=== PATIENT | male | born 1965 | race Hispanic/Latino ===

== ENCOUNTER 2017-12-21 08:32 | Emergency (ER) | payer SELFPAY ==
[2017-12-21] MEDS ORDERED: PERCOCET 5/325 PO ONE (09:14)
--- NOTE | 2017-12-21 09:19 | Emergency Department Report ---
Blank Doc - Documentation Documentation: 52-year-old male past medical history of knee problems, osteoarthritis, came in complaining of bilateral knee pain for one year. Patient states that he has seen 2 orthopedic surgeons in [place] and is told that he needs knee replacement. Patient states that he still working on his insurance. Patient denies any nausea vomiting chest pain shortness of breath. Patient denies any calf pain bilaterally. P: 1. x rays 2. pain control
--- NOTE | 2017-12-21 10:28 | Emergency Department Report ---
ED Lower Extremity HPI - General Chief Complaint: Extremity Injury, Lower Stated Complaint: KNEE PAIN Time Seen by Provider: 12/21/17 09:03 Source: patient Mode of arrival: Wheelchair Limitations: No Limitations - History of Present Illness Initial Comments: 52-year-old male past medical history of osteoarthritis presents with bilateral knee pain for one year. He is complaining of left knee pain increased and unable to apply pressure. Patient states that he has seen 2 orthopedic surgeons in [place] and ER at [facility] told that he needs knee replacement. Patient states that he still working on obtaining insurance. Last week Luis A applied for emergency medicaid and awaiting approval for surgery. Patient denies nausea or vomiting, fever, chest pain, shortness of breath, and calf pain bilaterally. MD Complaint: knee injury (bilateral, worsening left) -: year(s) Injury: Knee: Left (pain with ROM, unable to bear weight to LLE) Type of Injury: unknown Place: home Severity: severe Severity scale (0 -10): 10 Improves With: nothing Worsens With: weight bearing, movement, palpation Associated Symptoms: swelling, unable to bear weight. denies: snap/pop sensation, numbness, tingling, ambulatory (sitting in wheelchair) Treatments Prior to Arrival: NSAIDS - Related Data Previous Rx's Medication Instructions Recorded Last Taken Type Cyclobenzaprine HCl 7.5 mg PO TID PRN #20 tab 12/21/17 Unknown Rx [Cyclobenzaprine 7.5 MG TAB] Diclofenac Sodium 75 mg PO BID #30 tablet. 12/21/17 Unknown Rx traMADol [Ultram 50 MG tab] 50 mg PO Q6HR PRN #20 tablet 12/21/17 Unknown Rx Allergies Allergy/AdvReac Type Severity Reaction Status Date / Time No Known Allergies Allergy Unverified 12/21/17 08:33 ED Review of Systems ROS: Stated complaint: KNEE PAIN Other details as noted in HPI Constitutional: denies: chills, fever Respiratory: denies: cough, shortness of breath, wheezing Cardiovascular: denies: chest pain, palpitations Gastrointestinal: denies: abdominal pain, nausea, diarrhea Musculoskeletal: joint swelling (left knee), arthralgia (left knee). denies: back pain Skin: denies: rash, lesions Neurological: denies: headache, weakness, numbness, paresthesias Psychiatric: denies: anxiety, depression ED Past Medical Hx - Past Medical History Previous Medical History?: No - Surgical History Past Surgical History?: Yes Additional Surgical History: knee surgery, neck surgery - Social History Smoking Status: Never Smoker Substance Use Type: Alcohol - Medications Home Medications: Home Medications Medication Instructions Recorded Confirmed Last Taken Type Cyclobenzaprine HCl 7.5 mg PO TID PRN #20 tab 12/21/17 Unknown Rx [Cyclobenzaprine 7.5 MG TAB] Diclofenac Sodium 75 mg PO BID #30 tablet. 12/21/17 Unknown Rx traMADol [Ultram 50 MG tab] 50 mg PO Q6HR PRN #20 tablet 12/21/17 Unknown Rx ED Physical Exam - General Limitations: No Limitations General appearance: alert, in no apparent distress - Respiratory Respiratory exam: Present: normal lung sounds bilaterally. Absent: respiratory distress - Cardiovascular Cardiovascular Exam: Present: regular rate, normal rhythm, normal heart sounds. Absent: systolic murmur, diastolic murmur, rubs, gallop - GI/Abdominal GI/Abdominal exam: Present: soft, normal bowel sounds. Absent: organomegaly, mass - Expanded Lower Extremity Exam Left Hip exam: Present: normal inspection, full ROM. Absent: tenderness Upper Leg exam: Absent: tenderness, abrasion, laceration, ecchymosis, deformity , crepidus, dislocation, erythema Knee exam: Present: swelling, pain w/ pronation/supination (unable to tolerate passive or active range of motion). Absent: full ROM, abrasion, laceration, ecchymosis, full knee extension Lower Leg exam: Absent: tenderness, swelling, abrasion, crepidus, dislocation Ankle exam: Present: normal inspection, full ROM Foot/Toe exam: Present: normal inspection, full ROM Neuro vascular tendon exam: Present: no vascular compromise, significant pain with passive ROM of distal joint Gait: Positive: not tested/not observed, unable to bear weight - Neurological Exam Neurological exam: Present: alert, oriented X3, abnormal gait (unable to assess , unable to bear weight the left lower extremity) - Psychiatric Psychiatric exam: Present: normal affect, normal mood - Skin Skin exam: Present: warm, dry, intact, normal color. Absent: rash ED Course Vital Signs 12/21/17 12/21/17 12/21/17 08:33 09:31 11:55 Temperature 97.9 F 98.1 F Pulse Rate 118 H 86 Respiratory 18 18 18 Rate Blood Pressure 152/101 Blood Pressure 121/85 [Left] O2 Sat by Pulse 99 99 Oximetry ED Lower Extremity MDM - Medical Decision Making This is a 52 y.o. male presents with chronic bilateral knee pain. History of osteoarthritis with worsening left knee pain 3 months. Patient was examined by me and Dr. Hinds. Elevated HR and BP. Given percocet once in ER. Vitals stable on reassessment. Obtain bilateral knee x-rays and reevaluate by radiologist. Report given via phone from radiologist of bilateral knee osteoarthritis with severe left knee osteoarthritis. No swelling, erythema, or calf pain bilaterally on physical assessment. Patient informed of results. Start diclofenac and cyclobenzaprine for pain. Plan discussed with patient to discharge home and treat outpatient. He agrees with ER plan. Patient discharged home in stable condition. Follow up with PCP and orthopedic in 2-3 days. Critical care attestation.: If time is entered above; I have spent that time in minutes in the direct care of this critically ill patient, excluding procedure time. ED Disposition Clinical Impression: Osteoarthritis Qualifiers: Osteoarthritis location: knee Osteoarthritis type: primary Laterality: bilateral Qualified Code(s): M17.0 - Bilateral primary osteoarthritis of knee Left knee pain Qualifiers: Chronicity: chronic Qualified Code(s): M25.562 - Pain in left knee Disposition: - TO HOME OR SELFCARE Is pt being admited?: No Does the pt Need Aspirin: No Condition: Stable Instructions: Osteoarthritis (ED), Self-Care Measures with a Chronic Disease ( ED) Additional Instructions: Rest Use ice or heat on affected area for 20 minutes and off for 2 hours. Take pain medication as needed for pain. Don't drive or operate heavy machinery while taking muscle relaxers because they may cause drowsiness. Follow up with Primary Care Provider and Orthopedic in 2-3 days. Prescriptions: Cyclobenzaprine HCl [Cyclobenzaprine 7.5 MG TAB] 7.5 mg PO TID PRN #20 tab PRN Reason: Muscle Spasm Diclofenac Sodium 75 mg PO BID #30 tablet. traMADol [Ultram 50 MG tab] 50 mg PO Q6HR PRN #20 tablet PRN Reason: Pain Referrals: [facility] [Outside] - 3-5 Days [facility] [Outside] - 3-5 Days OH WILLIS MD [Staff Physician] - 3-5 Days Time of Disposition: 11:44 Print Language: SETSWANA
[2017-12-21 11:56] VITALS: BP 121/85
--- NOTE | 2017-12-25 12:56 | XRay Report ---
BILATERAL KNEES, 3 VIEWS History: Bilateral knee pain. Findings: There are severe tricompartmental osteoarthritic changes in the left knee. Small joint effusion. There are minimal degenerative changes identified in the right knee. No evidence for fracture, bone lesion or joint effusion. Impression: Severe osteoarthritis in the left knee. Minimal osteoarthritis in the right knee.
== END 2017-12-21 12:28 | disposition home or self-care (01) ==
LOC: ED 08:32
DX: M17.0 Bilateral primary osteoarthritis of knee (principal); M25.562 Pain in left knee

== ENCOUNTER 2022-04-23 06:18 | Observation (INO) | payer MEDICARE ==
[2022-04-17 10:22] LABS: Hemoglobin 15.6 gm/dl (11.8-15.2); Mean Corpuscular HGB Conc 33 % (32-34); Mean Corpuscular Volume 94 fl (84-94); Platelet Count 214 K/mm3 (140-440); Red Cell Distribution Width 15.4 % (13.2-15.2)
[2022-04-17 10:34] LABS: Alanine Aminotransferase 19 units/L (7-56); Albumin 4.4 g/dL (3.9-5); BUN/Creatinine Ratio 20; Blood Urea Nitrogen 18 mg/dL (9-20); Calcium 10.4 mg/dL (8.4-10.2); Hemolysis Index 20
--- NOTE | 2022-04-17 12:51 | Anesthesia Consultation ---
Anesthesia Consult and Med Hx Date of service: 04/23/22 - Airway Anesthetic Teeth Evaluation: Chipped, Crowns ROM Head & Neck: Adequate Mental/Hyoid Distance: Adequate Mallampati Class: Class III Intubation Access Assessment: Probably Good - Pre-Operative Health Status Proposed Anesthetic Plan: General - Pulmonary Hx Smoking: No Hx Respiratory Symptoms: No (+2FS) Hx Sleep Apnea: No - Cardiovascular System Hx Hypertension: Yes Hx Peripheral Vascular Disease: Yes (ED) - Central Nervous System Hx Back Pain: Yes Hx Psychiatric Problems: No - Gastrointestinal Hx Gastroesophageal Reflux Disease: No - Endocrine Hx Non-Insulin Dependent Diabetes: Yes - Other Systems Hx Alcohol Use: Yes (Beer daily) Hx Substance Use: Yes (Marijuana occas) Hx Cancer: No Hx Obesity: No
[~2022-04-23 06:18] MED LIST: ACETAMINOPHEN 500 MG TAB PO ONE; CELECOXIB 200 MG CAP PO NR; GABAPENTIN 300 MG CAP PO NR; LACTATED RINGERS 1,000 ML IV SCH; MAGNESIUM OXIDE 400 MG TAB PO ONE; MIDAZOLAM 2 MG/2 ML INJ IV NR
[2022-04-23] MEDS ORDERED: SODIUM CHLORIDE 0.9% IV SCH (07:00)
[2022-04-23] MEDS ORDERED: VANCOMYCIN/NS 1 GM/250 ML 1 GM/250 ML BAG IV NR (07:00)
[2022-04-23] MEDS ORDERED: GENTAMICIN IV SCH (07:00)
--- NOTE | 2022-04-23 07:29 | Anesthesia Day of Surgery ---
Anesthesia Day of Surgery - Day of Surgery Patient Examined: Yes Patient H&P Reviewed: Yes Patient is NPO: Yes
[2022-04-23] MEDS ORDERED: SODIUM CHLORIDE P/F VIAL 10 ML 10 ML ONE (07:30)
[2022-04-23] MEDS ORDERED: BUPIVACAINE/PF (0.5%) 5 MG/1 ML 30 ML VIAL INFILTRATI ONE ×2 (07:30→09:01)
[2022-04-23] MEDS ORDERED: SODIUM CHLORIDE 0.9% 1000 ML 0 ML ONE (07:30)
[2022-04-23] MEDS ORDERED: rifAMPin 600 MG VIAL ONE (07:30)
[2022-04-23] MEDS ORDERED: GENTAMICIN/NS 120MG/100ML 120 MG/100 ML BAG IV SCH (07:30)
[2022-04-23] MEDS ORDERED: GENTAMICIN 40 MG/ML VIAL 2 ML ONE (07:30)
[2022-04-23] MEDS ORDERED: SODIUM CHLORIDE 0.9% 500 ML 500 ML ONE (07:31)
[2022-04-23] MEDS ORDERED: SODIUM CHLORIDE 0.9% 50 ML ONE (07:31)
[2022-04-23] MEDS ORDERED: NEOMY 40 MG/POLYMYXIN B 200,000 UNITS/ML (GU) AMPULE IR ONE ×2 (07:31→09:06)
[2022-04-23] MEDS ORDERED: LIDOCAINE MPF (2%) 20 MG/1 ML VIAL 5 ML ONE (07:33)
[2022-04-23] MEDS ORDERED: MIDAZOLAM 2 MG/2 ML INJ ONE (07:34)
[2022-04-23] MEDS ORDERED: propofoL 200 MG/20 ML VIAL IV ONE (07:34)
[2022-04-23] MEDS ORDERED: fentaNYL 100 MCG/2 ML INJ ONE (07:34)
[2022-04-23] MEDS ORDERED: ONDANSETRON 4 MG/2 ML INJ IV PRN (08:00)
[2022-04-23] MEDS ORDERED: HYDROmorphone 0.5 MG/0.5 ML INJ IV PRN (08:00)
[2022-04-23] MEDS ORDERED: BACITRACIN ZINC OINT 28.4 GM TP ONE (08:39)
[2022-04-23] MEDS ORDERED: ACETAMINOPHEN 325 MG TAB PO PRN (09:00)
[2022-04-23] MEDS ORDERED: NALOXONE 0.4 MG/1 ML INJ IV PRN (09:00)
[2022-04-23] MEDS ORDERED: MORPHINE 4 MG/1 ML INJ IV PRN (09:00)
[2022-04-23] MEDS ORDERED: rifAMPin 600 MG VIAL IV ONE (09:02)
[2022-04-23] MEDS ORDERED: SODIUM CHLORIDE 0.9% P/F 10 ML VIAL IV ONE (09:02)
[2022-04-23] MEDS ORDERED: GENTAMICIN 40 MG/ML VIAL 2 ML IV ONE (09:03)
[2022-04-23] MEDS ORDERED: SODIUM CHLORIDE 0.9% 500 ML IVPB IRRIGATION ONE (09:04)
[2022-04-23] MEDS ORDERED: SODIUM CHLORIDE 0.9% 50 ML VIAL IV ONE (09:05)
[2022-04-23] MEDS ORDERED: PHENYLEPHRINE/NS 1,000 MCG/10 ML SYRINGE (OR USE) IV ONE (09:46)
[2022-04-23] MEDS ORDERED: ONDANSETRON 4 MG/2 ML INJ ONE (09:46)
[2022-04-23] MEDS ORDERED: KETOROLAC 30 MG/1 ML INJ ONE (09:46)
--- NOTE | 2022-04-23 10:04 | Short Stay Summary ---
Short Stay Documentation Date of service: 04/23/22 - History H&P: obtained from office - Allergies and Medications Current Medications: Allergies No Known Allergies Allergy (Unverified 12/21/17 08:33) Home Medications Medication Instructions Recorded Confirmed Last Taken Type AtorvaSTATin [Lipitor] 40 mg PO QHS 04/16/22 04/16/22 Unknown History Ibuprofen [Motrin] 800 mg PO Q8HR PRN 04/16/22 04/16/22 Unknown History hydroCHLOROthiazide [HCTZ] 25 mg PO QDAY 04/16/22 04/16/22 Unknown History metFORMIN [Glucophage] 500 mg PO BID 04/16/22 04/16/22 Unknown History Active Medications Acetaminophen (Acetaminophen 325 Mg Tab) 650 mg PO Q4H PRN PRN Reason: Pain MILD(1-3)/Fever >100.5/LAWSON Hydrocodone Bitart/Acetaminophen (Hydrocodone/Acetaminophen 5-325 Mg Tab) 2 each PO Q6H PRN PRN Reason: Pain, Moderate (4-6) Celecoxib (Celecoxib 200 Mg Cap) 400 mg PO PREOP NR Stop: 04/23/22 23:59 Last Admin: 04/23/22 07:15 Dose: 400 mg Gabapentin (Gabapentin 300 Mg Cap) 600 mg PO PREOP NR Stop: 04/23/22 23:59 Last Admin: 04/23/22 07:15 Dose: 600 mg Hydromorphone HCl (Hydromorphone 0.5 Mg/0.5 Ml Inj) 0.5 mg IV Q10MIN PRN PRN Reason: Pain , Severe (7-10) Stop: 04/23/22 16:00 Lactated Ringer's (Lactated Ringers) 1,000 mls @ 125 mls/hr IV DIRECT JOHANA Last Admin: 04/23/22 07:15 Dose: 125 mls/hr Vancomycin HCl (Vancomycin/Ns 1 Gm/250 Ml) 1 gm in 250 mls @ 166.667 mls/hr IV PREOP NR; Protocol Stop: 04/23/22 15:00 Gentamicin Sulfate/Sodium Chloride (Gentamicin/Ns 120mg/100ml) 120 mg in 100 mls @ 200 mls/hr IV PREOP JOHANA Stop: 04/23/22 14:00 Midazolam HCl (Midazolam 2 Mg/2 Ml Inj) 2 mg IV PREOP NR Stop: 04/23/22 23:59 Morphine Sulfate (Morphine 4 Mg/1 Ml Inj) 4 mg IV Q4H PRN PRN Reason: Pain , Severe (7-10) Naloxone HCl (Naloxone 0.4 Mg/1 Ml Inj) 0.1 mg IV Q2MIN PRN PRN Reason: Res Rate </= 8 or 02 SAT < 92% Ondansetron HCl (Ondansetron 4 Mg/2 Ml Inj) 4 mg IV ONCE PRN PRN Reason: Nausea And Vomiting Stop: 04/23/22 17:00 - Brief post op/procedure progress note Date of procedure: 04/23/22 Pre-op diagnosis: ed Post-op diagnosis: same Procedure: ipp (coloplast 20+1cm, RTE) Anesthesia: GETA Surgeon: JW MADDOX Estimated blood loss: minimal Pathology: none Condition: stable - Hospital course Hospital course: pt has pain meds & abx at home post op info on chart DC BARNES DONE DC HOME - Disposition Condition at discharge: Stable Disposition: 01 HOME / SELF CARE / HOMELESS Short Stay Discharge Plan Follow up with: JESUS LUO MD [Primary Care Provider] - 7 Days
[2022-04-23] MEDS ORDERED: DEXTROSE 50% IN WATER (25GM) 50 ML SYRINGE IV PRN (10:08)
--- NOTE | 2022-04-23 10:47 | Operative Report ---
DATE OF SURGERY: 04/23/2022 PREOPERATIVE DIAGNOSIS: Erectile dysfunction. POSTOPERATIVE DIAGNOSES: Erectile dysfunction, penile curvature. PROCEDURE: Insertion of inflatable penile prosthesis (Coloplast 20 cm device with a 1 cm rear tip test rack operator) modeling procedure. SURGEON: Chin Garcia MD ANESTHESIA: General. ESTIMATED BLOOD LOSS: Minimal. FLUIDS: Crystalloid. COMPLICATIONS: No complications. INDICATIONS: This patient is a 56-year-old gentleman with history of high blood pressure, hyperlipidemia, diabetes and refractory erectile dysfunction. He discussed options. He reviewed the literature. Risks, benefits, complications were explained. The patient agreed to proceed with surgical intervention. DESCRIPTION OF PROCEDURE: The patient was taken to the operative suite, placed in a supine position. After adequate anesthesia, he was prepped and draped in a sterile fashion. Dorsal block was made with 10 mL of Marcaine. Meneses catheter was placed on the operative field. Clear urine return could be appreciated. A penile block was performed with 50 mL of Marcaine. He did have some curvature approximately 10-20 degrees upward. Transscrotal incision was made with a Bovie. Sharp dissection was taken down to the corporal bodies 2-0 Vicryl stay sutures were made. Corporotomies were made bilaterally. Measurements revealed 21 cm in total length. Therefore, a 20 cm Coloplast device was prepped with a 1 cm rear tip test rack operator, 125 mL CL reservoir was prepped and placed in the retropubic space via the right external ring, 80 mL of saline was placed without difficulty. The device was then placed in the corporal bodies with aid of the Lucio needle. It seated well. Corporotomies were closed with 2-0 Vicryl in a running fashion. Inflation of the device again revealed that curvature as well as some wasting at the proximal shaft. Shods were placed to protect the device and mottling was performed. There was some cracking and some improvement of the wasting, but it was still there. The quick click connection device was used to connect the reservoir and the pump and then it was inflated again with an excellent cosmetic appearance. Copious irrigation was performed. Adequate hemostasis was achieved. The pump was secured in the dependent portion of the scrotum. 2-0 Vicryl pursestring suture was used to secure that and a 2-0 Vicryl running stitch to close the dartos layer. Skin was closed in a transverse fashion using 3-0 Vicryl in interrupted fashion. Collodion and Xeroform gauze followed by a mummy wrap. The patient tolerated the procedure well and was extubated and taken to the recovery room. He will be observed overnight. TID: [id number] RECEIPT: [id number] C/HUS
[2022-04-23] MEDS: INSULIN LISPRO 100 UNIT/ML SUB-Q SCH ×3 (11:30→22:31)
[2022-04-23] MEDS: ceFAZolin/NS 1 GM/50 ML 1 GM/50 ML BAG IV SCH ×2 (12:00→21:23)
[2022-04-23] MEDS: SODIUM CHLORIDE 0.45% 1000 ML 1,000 ML IV SCH (13:25)
--- NOTE | 2022-04-23 13:30 | Post Anesthesia Evaluation ---
- Post Anesthesia Evaluation Patient Participated: Yes Airway Patent: Yes Stable Respiratory Function: Yes Nausea/Vomiting: No Temp > 96.8F: Yes Pain Manageable: Yes Adequeate Hydration: Yes Anesthesia Complications: No
--- NOTE | 2022-04-23 16:09 | Consultation ---
History of Present Illness - Reason for Consult Consult date: 04/23/22 Medical management Requesting physician: JW MADDOX - History of Present Illness Patient is s/p IPP Postop patient doing well No complications Past History Past Medical History: diabetes, hypertension, hyperlipidemia Past Surgical History: Other (IPP) Social history: lives with family, full code Family history: hypertension Medications and Allergies Allergies Allergy/AdvReac Type Severity Reaction Status Date / Time No Known Allergies Allergy Unverified 12/21/17 08:33 Home Medications Medication Instructions Recorded Confirmed Last Taken Type AtorvaSTATin [Lipitor] 40 mg PO QHS 04/16/22 04/16/22 Unknown History Ibuprofen [Motrin] 800 mg PO Q8HR PRN 04/16/22 04/16/22 Unknown History hydroCHLOROthiazide [HCTZ] 25 mg PO QDAY 04/16/22 04/16/22 Unknown History metFORMIN [Glucophage] 500 mg PO BID 04/16/22 04/16/22 Unknown History Active Meds: Active Medications Acetaminophen (Acetaminophen 325 Mg Tab) 650 mg PO Q4H PRN PRN Reason: Pain MILD(1-3)/Fever >100.5/LAWSON Hydrocodone Bitart/Acetaminophen (Hydrocodone/Acetaminophen 5-325 Mg Tab) 2 eac h PO Q6H PRN PRN Reason: Pain, Moderate (4-6) Atorvastatin Calcium (Atorvastatin 40 Mg Tab) 40 mg PO QHS JOHANA Celecoxib (Celecoxib 200 Mg Cap) 400 mg PO PREOP NR Stop: 04/23/22 23:59 Last Admin: 04/23/22 07:15 Dose: 400 mg Dextrose (Dextrose 50% In Water (25gm) 50 Ml Syringe) 50 ml IV Q30MIN PRN; Protocol PRN Reason: Hypoglycemia Gabapentin (Gabapentin 300 Mg Cap) 600 mg PO PREOP NR Stop: 04/23/22 23:59 Last Admin: 04/23/22 07:15 Dose: 600 mg Hydrochlorothiazide (Hydrochlorothiazide 25 Mg Tab) 25 mg PO QDAY JOHANA Lactated Ringer's (Lactated Ringers) 1,000 mls @ 125 mls/hr IV DIRECT JOHANA Stop: 04/23/22 18:00 Last Admin: 04/23/22 07:15 Dose: 125 mls/hr Sodium Chloride (Nacl 0.45% 1000 Ml) 1,000 mls @ 100 mls/hr IV DIRECT JOHANA Last Admin: 04/23/22 13:25 Dose: 100 mls/hr Cefazolin Sodium (Ancef/Ns 1 Gm/50 Ml) 1 gm in 50 mls @ 100 mls/hr IV Q8H [facility]; Protocol Last Admin: 04/23/22 12:00 Dose: 100 mls/hr Insulin Human Lispro (Insulin Lispro 100 Unit/Ml) 0 unit SUB-Q ACHS [facility]; Protocol Last Admin: 04/23/22 11:30 Dose: Not Given Metformin HCl (Metformin 500 Mg Tab) 500 mg PO BIDDIAB [facility] Midazolam HCl (Midazolam 2 Mg/2 Ml Inj) 2 mg IV PREOP NR Stop: 04/23/22 23:59 Morphine Sulfate (Morphine 4 Mg/1 Ml Inj) 4 mg IV Q4H PRN PRN Reason: Pain , Severe (7-10) Naloxone HCl (Naloxone 0.4 Mg/1 Ml Inj) 0.1 mg IV Q2MIN PRN PRN Reason: Res Rate </= 8 or 02 SAT < 92% Ondansetron HCl (Ondansetron 4 Mg/2 Ml Inj) 4 mg IV ONCE PRN PRN Reason: Nausea And Vomiting Stop: 04/23/22 17:00 Review of Systems All systems: negative Exam - Constitutional Vitals: Temp Pulse Resp BP Pulse Ox 97.8 F 66 14 115/72 100 04/23/22 11:45 04/23/22 11:45 04/23/22 11:45 04/23/22 11:45 04/23/22 11:45 General appearance: Present: no acute distress, well-nourished - EENT Eyes: Present: PERRL ENT: hearing intact, clear oral mucosa - Neck Neck: Present: supple, normal ROM - Respiratory Respiratory effort: normal Respiratory: bilateral: CTA - Cardiovascular Heart rate: 78 Rhythm: regular Heart Sounds: Present: S1 & S2. Absent: rub, click - Extremities Extremities: pulses symmetrical, No edema Peripheral Pulses: within normal limits - Abdominal General gastrointestinal: Present: soft, non-tender, non-distended, normal bowel sounds Male genitourinary: Present: normal - Integumentary Integumentary: Present: clear, warm, dry - Musculoskeletal Musculoskeletal: gait normal, strength equal bilaterally - Psychiatric Psychiatric: appropriate mood/affect, intact judgment & insight - Neurologic Neurologic: CNII-XII intact, moves all extremities Results - Labs CBC & Chem 7: 04/17/22 06:00 04/17/22 10:00 Labs: Abnormal lab results 04/23/22 Range/Units 10:07 POC Glucose 109 H (70-105) mg/dL Assessment and Plan - Patient Problems (1) Status post surgery Current Visit: Yes Status: Acute Plan to address problem: Patient had IPP Doing well (2) T2DM (type 2 diabetes mellitus) Current Visit: Yes Status: Chronic Qualifiers: Diabetes mellitus skilled nursing insulin use: without hop strainer use Plan to address problem: Continue metformin and coverage (3) HTN (hypertension) Current Visit: Yes Status: Chronic Qualifiers: Hypertension type: primary hypertension Qualified Code(s): I10 - Essential (primary) hypertension Plan to address problem: Continue hydrochlorothiazide and adjust medications as necessary (4) Hyperlipidemia Current Visit: Yes Status: Chronic Qualifiers: Hyperlipidemia type: mixed hyperlipidemia Qualified Code(s): E78.2 - Mixed hyperlipidemia Plan to address problem: Continue statins (5) DVT prophylaxis Current Visit: Yes Status: Acute Plan to address problem: On SCDs and GI prophylaxis
[2022-04-23] MEDS: metFORMIN 500 MG TAB PO SCH (18:01)
[2022-04-23] MEDS: HYDROcodone/ACETAMINOPHEN 5-325 MG TAB PO PRN (18:01)
[2022-04-24] MEDS: HYDROcodone/ACETAMINOPHEN 5-325 MG TAB PO PRN ×2 (02:32→09:16)
[2022-04-24] MEDS: SODIUM CHLORIDE 0.45% 1000 ML 1,000 ML IV SCH (02:32)
[2022-04-24] MEDS: ceFAZolin/NS 1 GM/50 ML 1 GM/50 ML BAG IV SCH ×2 (03:53→12:00)
[2022-04-24] MEDS: INSULIN LISPRO 100 UNIT/ML SUB-Q SCH ×2 (07:30→11:30)
[2022-04-24] MEDS: metFORMIN 500 MG TAB PO SCH (09:14)
[2022-04-24] MEDS ORDERED: hydroCHLOROthiazide 25 MG TAB PO SCH (10:00)
[2022-04-24 13:15] VITALS: BP 127/76
== END 2022-04-24 14:00 | disposition home or self-care (01) ==
LOC: OR 06:18 → 3A 08:18
PROVIDERS: ADMIT Urology; ATTEND Urology
DX: N52.01 Erectile dysfunction due to arterial insufficiency (principal); I10 Essential (primary) hypertension; E11.9 Type 2 diabetes mellitus without complications; E78.5 Hyperlipidemia, unspecified; Z79.4 Long term (current) use of insulin; Z79.84 Long term (current) use of oral hypoglycemic drugs; Z79.899 Other long term (current) drug therapy; Z98.890 Other specified postprocedural states
CPT/HCPCS: 36415; 54405; 80053; 82962; 85027; 96365; 96366; C1813; G0378; G0379; J0690; J1580; J1885; J2250; J2370; J2405; J2704; J3010; J3370; J3490; J7030; J7040; J7120